=== PATIENT | male | born 1985 | race Caucasian/White ===

== ENCOUNTER 2024-02-20 20:09 | Emergency (ER) | payer OTHER, SELFPAY ==
--- NOTE | ~2024-02-20 | XR_ITS ---
EXAMINATION: XR chest 2V DATE: 02/20/2024 20:45 INDICATION: Chest pain TECHNIQUE: PA and lateral views of the chest were obtained. COMPARISON: None FINDINGS: The lungs are clear with no focal airspace opacities, pulmonary edema, pleural effusion or pneumothor ax. The cardiomediastinal silhouette is normal. Mild thoracic spondylosis. IMPRESSION: 1. No acute cardiopulmonary disease. Reviewed, dictated and finalized at location A.
--- NOTE | 2024-02-20 20:11 | ECG_ITS ---
SEE SCANNED COPY FOR CONFIRMED REPORT MTDD
[2024-02-20 20:27] VITALS: BP 144/113; PULSE 113; RESP 20; TEMP 36.6; O2SAT 98
[2024-02-20 20:29] LABS: Basophils Absolute Auto 0.1 K/mm3 (0.0-0.1); Basophils Percent Auto 0.7 % (0.2-1.2); Eosinophils Absolute Auto 0.1 K/mm3 (0-0.3); Eosinophils Percent Auto 1.3 % (0-4.4); Hematocrit 44.3 % (42.0-52.0); Hemoglobin 16.1 g/dL (14.0-18.0); Immature Granulocyte Absolute 0.02 K/mm3 (0.00-0.031); Immature Granulocyte Percent A 0.3 % (0-0.5); Lymphocytes Absolute Auto 3.38 K/mm3 (0.9-3.2); Mean Corpuscular HGB Conc 36.3 g/dl (32-36); Mean Corpuscular Hemoglobin 29.8 pg (26-34); Mean Corpuscular Volume 81.9 fl (80-100); Mean Platelet Volume 8.4 fl (7.4-10.4); Monocytes Absolute Auto 0.6 K/mm3 (0.1-0.6); Monocytes Percent Auto 7.7 % (2.6-8.5); Neutrophils Absolute Auto 3.4 K/mm3 (1.3-6.7); Platelet Count Result 290 k/mm3 (150-375); Red Blood Count 5.41 M/mm3 (4.6-6.20); Red Cell Distribution Width 12.7 % (11.5-14.5); White Blood Count 7.5 K/mm3 (4.5-10.0)
[2024-02-20 20:39] LABS: Alanine Aminotransferase 78 U/L (6-50); Albumin Level 5.2 g/dL (3.5-5.1); Alkaline Phosphatase 41 U/L (38-126); Anion Gap 10 mmol/L (4-12); Aspartate Amino Transferase 49 U/L (17-59); Bilirubin,Total 1.5 mg/dL (0.2-1.3); Blood Urea Nitrogen 13 mg/dL (9-20); Calcium 10.1 mg/dL (8.4-10.2); Carbon Dioxide 25 mmol/L (22-30); Chloride 105 mmol/L (98-107); Estimated CRCL calculation 114 ml/min; Estimated Glomerular Filt Rate > 60; Glucose 127 mg/dL (65-110); Lipase 51 U/L (23-300); Potassium 3.9 mmol/L (3.4-5.0); Sodium 140 mmol/L (137-145)
[2024-02-20 20:40] LABS: Prothrombin Time 13.3 Seconds (11.1-14.7)
[2024-02-20 20:41] LABS: Partial Thromboplastin Time 25.8 Seconds (22.3-36.8)
[2024-02-20 20:50] LABS: Troponin I < 0.012 ng/mL (0.000-0.034)
--- NOTE | 2024-02-20 21:43 | ED.CHESTPAIN ---
HPI - Chest Pain General Chief Complaint: Chest Pain Stated Complaint: chest pain Time Seen by Provider: 02/20/24 21:18 Source: patient Mode of arrival: ambulatory History of Present Illness HPI narrative: 38-year-old male presenting for episodic chest pain today as well as high blood pressure. Says he has been stressed out because 1 of his coworkers yesterday unexpectedly. It is making him feel very sad. he says he noticed some occasional chest burning sensation today starting this morning. Seems to come and go feels short of breath when it happens. Also has been feeling quite anxious today in nervous. Related Data Allergies Allergy/AdvReac Type Severity Reaction Status Date / Time Penicillins Allergy Difficulty Verified 02/20/24 20:35 Breathing Review of Systems Review of Systems: All systems reviewed & are unremarkable except as noted in HPI and below PMFSH Past Medical History Medical History Attention and concentration deficit Disorder of the skin and subcutaneous tissue, unspecified Elevated blood-pressure reading, without diagnosis of hypertension Social History Social History Smoking status: Never smoker Tobacco type: cigars Alcohol intake: current Exam Narrative: Constitutional: Generally well appearing, no acute distress . Anxious Head: Atraumatic, no deformities. Eyes: Pupils equal, round, and reactive to light. Neck: Supple, no tracheal deviation, no JVD. ENMT: Mucous membranes moist Cardiovascular: S1, S2 auscultated. No murmurs, rubs, or gallops. No S3/S4. Normal Distal pulses. No peripheral edema. Respiratory: Lung sounds equal. No wheezes, rales, or rhonchi. Gastrointestinal: Abdomen was soft and non-tender. Non-distended. No rebound or guarding. Genitourinary: Deferred Musculoskeletal: Normal muscle tone and bulk. No obvious deformities or tenderness over extremities. Skin: No rashes. Neurological: Strength 5/5 in extremities. Cranial nerves I-XII grossly intact. Distal sensation intact. Mental Status: Awake, alert and oriented x3. Follows commands Course Vital Signs Vital signs: Vital Signs Temperature 36.6 C 02/20/24 20:27 Pulse Rate 113 H 02/20/24 20:27 Respiratory Rate 02/20/24 20:27 Blood Pressure 144/113 H 02/20/24 20:27 Pulse Oximetry 98 02/20/24 20:27 Oxygen Delivery Room Air 02/20/24 20:27 Temperature 36.6 C 02/20/24 20:27 Pulse Rate 113 H 02/20/24 20:27 Respiratory Rate 20 02/20/24 20:27 Blood Pressure 144/113 H 02/20/24 20:27 Pulse Oximetry 98 02/20/24 20:27 Oxygen Delivery Room Air 02/20/24 20:27 MDM - Chest Pain MDM Narrative Medical decision making narrative: EKG at 8:15 p.m. shows sinus tachycardia rate 119. Borderline left axis DB she. Normal intervals. No ST elevation or depression. Impression: No STEMI 38-year-old male here with some intermittent chest pain and shortness of breath throughout the day today. Had a co-worker unexpectedly yesterday and he found about it today and that is when his symptoms seemed to start. Says he is quite upset about it. On exam he is hypertensive and slightly tachycardic but quite anxious initially. Blood pressure is starting to come down his heart rate is coming down immediately to below 100 whenever I leave the room. Otherwise exam is unremarkable. Suspect likely anxiety component. Obtaining cardiac workup. Also obtaining a D-dimer To out pulmonary embolism. labs and imaging all reviewed. Negative. Currently patient heart rate 100, blood pressure improved. Stable for discharge. Started him on amlodipine low dose. Pt feeling improved and would like to go home at this point. Return precautions were given to the patient include any new or worsening symptoms or development of and not limited to any chest pain, shortness o
[2024-02-20 21:56] LABS: D Dimer < 0.27 ug/mL (<0.48)
[2024-02-20 22:04] VITALS: BP 161/107; PULSE 100; RESP 16; O2SAT 97
[2024-02-20] MEDS: amLODIPine BESYLATE 2.5 MG TABLET PO (22:19)
[2024-02-20 22:22] VITALS: BP 144/105; PULSE 100; RESP 20; O2SAT 96
== END 2024-02-20 22:22 | disposition home or self-care (01) ==
PROVIDERS: Emergency Provider Emergency Medicine; PCP Family Medicine
DX: R07.89 Other chest pain (principal); R03.0 Elevated blood-pressure reading, without diagnosis of hypertension; R41.840 Attention and concentration deficit; R00.0 Tachycardia, unspecified
CPT/HCPCS: 36415; 71046; 80053; 83690; 84484; 85025; 85380; 85610; 85730; 93005; 99284; A9270